=== PATIENT | female | born 1985 | race Caucasian/White ===

== ENCOUNTER 2017-07-01 21:10 | Emergency (ER) | payer OTHER ==
[~2017-07-01 21:10] MED LIST: ALBU17I INH; HYCOS PO; Z.0.NO CURRENT MEDS; ZITH250T PO
[2017-07-01 21:12] VITALS: BP 220/108; PULSE 75; RESP 20; TEMP 97.9; O2SAT 99
[2017-07-01] MEDS ORDERED: DEXAMETHASONE SOD PHOS 4 MG/ML VIAL IV PUSH ONE (21:30)
[2017-07-01] MEDS ORDERED: SODIUM CHLORIDE 0.9% FLUSH 10 ML FLUSH IVF PRN (21:30)
--- NOTE | 2017-07-01 21:37 | PD ---
HPI Chief Complaint: Oral / Dental Pain or Problem Time Seen by Provider: 21:29 Travel History International Travel<30 days: No Contact w/Intl Traveler<30days: No Traveled to known affect area: No History of Present Illness HPI 32 YO F presents to the ED for evaluation of facial pain and swelling for two days. Patient states the swelling of the left side, related to "bad teeth." She states that she was seen by the dentist and provided a prescription of clindamycin. She finished this prescription 5 days ago. She did get improvement of her pain and swelling while she was taking the medication. She denies fevers or chills, nausea or vomiting, dizziness, headaches, difficulty opening and closing the mouth, difficulties breathing. She states she has an appointment with the oral surgeon in a few days to have 5 teeth removed. PFS Past Medical History Medical History: Denies Significant Hx Immunizations Current: Yes ?: Not : 2 Para: 0 Miscarriage: 2 Past Surgical History Cholecystectomy: Yes Social History Alcohol Use: Yes (OCCASIONALLY) Tobacco Use: No Substance Use: No Allergies-Medications (Allergen,Severity, Reaction): Coded Allergies: latex (Unverified Allergy, Mild, 07/01/17) iodine (Verified Allergy, Unknown, 07/01/17) Reported Meds & Prescriptions Reported Meds & Active Scripts Active No Active Prescriptions or Reported Medications Review of Systems Except as stated in HPI: all other systems reviewed are Neg Physical Exam Narrative GENERAL: Well-nourished, well-developed morbidly obese white female in no acute distress. SKIN: Warm and dry. HEAD: Normocephalic. Atraumatic. Edema of the left lateral mandible. EYES: No scleral icterus. No injection or drainage. PERRLA. EOMI. ENT: Pearly yepez tympanic membranes bilaterally. Nasal mucosa is moist. Oropharynx without erythema, edema or exudate. Airway patent. Floor of the mouth is soft. Exam somewhat limited, Mallampati class 3. DENTAL: Poor dentition overall. Several missing an chipped teeth. Tooth #19 is broken to the gumline. There is localized tenderness and edema. No visible/ palpable abscess. NECK: Supple, trachea midline. No JVD or lymphadenopathy. CARDIOVASCULAR: Regular rate and rhythm without murmurs, gallops, or rubs. RESPIRATORY: Breath sounds clear and equal bilaterally. No accessory muscle use. GASTROINTESTINAL: Abdomen soft, non-tender, nondistended. MUSCULOSKELETAL: No cyanosis, or edema. BACK: Nontender without obvious deformity. No CVA tenderness. Data Data Last Documented VS Vital Signs Date Time Temp Pulse Resp B/P (MAP) Pulse Ox O2 Delivery O2 Flow Rate FiO2 07/01/17 21:12 97.9 75 20 220/108 (145) 99 Room Air Orders Orders Basic Metabolic Panel (Bmp) (07/01/17 21:29) Complete Blood Count With Diff (07/01/17 21:29) Iv Access Insert/Monitor (07/01/17 21:29) Dexamethasone Inj (Decadron Inj) (07/01/17 21:30) Sodium Chloride 0.9% Flush (Ns Flush) (07/01/17 21:30) Ed Urine Pregnancytest Poc (07/01/17 21:29) Ct Soft Tiss Neck W/O Iv Cont (07/01/17 ) Labs Laboratory Tests Test 07/01/17 21:37 White Blood Count 11.7 TH/MM3 Red Blood Count 4.83 MIL/MM3 Hemoglobin 14.3 GM/DL Hematocrit 41.6 % Mean Corpuscular Volume 86.1 FL Mean Corpuscular Hemoglobin 29.6 PG Mean Corpuscular Hemoglobin Concent 34.4 % Red Cell Distribution Width 12.9 % Platelet Count 263 TH/MM3 Mean Platelet Volume 7.5 FL Neutrophils (%) (Auto) 61.9 % Lymphocytes (%) (Auto) 24.9 % Monocytes (%) (Auto) 5.7 % Eosinophils (%) (Auto) 6.3 % Basophils (%) (Auto) 1.2 % Neutrophils # (Auto) 7.2 TH/MM3 Lymphocytes # (Auto) 2.9 TH/MM3 Monocytes # (Auto) 0.7 TH/MM3 Eosinophils # (Auto) 0.7 TH/MM3 Basophils # (Auto) 0.1 TH/MM3 CBC Comment DIFF FINAL Differential Comment Blood Urea Nitrogen 8 MG/DL Creatinine 0.76 MG/DL Random Glucose 274 MG/DL Calcium Level 8.7 MG/DL Sodium Level 137 MEQ/L Potassium Level 4.0 MEQ/L Chloride Level 102 MEQ/L Carbon Dioxide Level 27.9 MEQ/L Anion Gap 7 MEQ/L Estimat Glomerular Filtration Rate 87 ML/MIN MDM Medical Decision Making Medical Screen Exam Complete: Yes Emergency Medical Condition: Yes Differential Diagnosis Dental abscess versus dental caries versus deep space infection of the neck versus cellulitis versus other Narrative Course 32 YO F presents to the ED for evaluation of facial pain and swelling for two days. Patient states the swelling of the left side, related to "bad teeth." She finished a prescription of clindamycin from the dentist 5 days ago. She did get improvement of her pain and swelling while she was taking the medication. She denies fevers or chills, nausea or vomiting, dizziness, headaches, difficulty opening and closing the mouth, difficulties breathing. She states she has an appointment with the oral surgeon in a few days to have 5 teeth removed. Vitals reviewed. Patient's hypertensive on presentation. His ankle exam reveals a morbidly obese white female in no acute distress. She does have visible swelling of the left lower mandible. There is induration in the area and tender, broken teeth in the oral cavity. Airway is patent. Uvula is midline. No evidence of drainable abscess. Exam somewhat limited, Mallampati class III. IV was established. Patient was administered 10 mg Decadron IV. No concerning abnormalities in CBC, CMP. CT soft tissue of the neck ordered and pending. The patient's allergic to iodine, study is without contrast. Patient is signed out to Dr. Ernst at end of shift. Please see her note for disposition. Scripts No Active Prescriptions or Reported Meds Olimpia Beltrán Jul 01, 2017 21:37
[2017-07-01 21:49] LABS: AUTOMATED NEUTROPHIL # 7.2 TH/MM3 (1.8-7.7); BASOPHIL # 0.1 TH/MM3 (0-0.2); BASOPHIL % 1.2 % (0.0-2.0); EOSINOPHIL # 0.7 TH/MM3 (0-0.4); EOSINOPHIL % 6.3 % (0.0-4.0); HEMATOCRIT 41.6 % (35.0-46.0); HEMO FLAGS DIFF FINAL; LYMPH % 24.9 % (9.0-44.0); LYMPHOCYTE # 2.9 TH/MM3 (1.0-4.8); MEAN CELL VOLUME 86.1 FL (80.0-100.0); MEAN CORPUSCULAR HEMOGLOBIN 29.6 PG (27.0-34.0); MEAN CORPUSCULAR HGB CONC 34.4 % (32.0-36.0); MONO % 5.7 % (0.0-8.0); NEUT % 61.9 % (16.0-70.0); PLATELET COUNT 263 TH/MM3 (150-450); RED BLOOD COUNT 4.83 MIL/MM3 (4.00-5.30); RED CELL DISTRIBUTION WIDTH 12.9 % (11.6-17.2); WHITE BLOOD COUNT 11.7 TH/MM3 (4.0-11.0)
[2017-07-01 22:03] LABS: BICARBONATE 27.9 MEQ/L (21.0-32.0)
[2017-07-01 23:12] VITALS: BP 167/100
--- NOTE | 2017-07-01 23:13 | PD ---
Physical Exam Date Seen by Provider: Jul 01, 2017 Time Seen by Provider: 23:13 Narrative Accepted in transfer of care Data Data Last Documented VS Vital Signs Date Time Temp Pulse Resp B/P (MAP) Pulse Ox O2 Delivery O2 Flow Rate FiO2 07/01/17 23:12 167/100 (122) 07/01/17 21:12 97.9 75 20 99 Room Air Orders Orders Basic Metabolic Panel (Bmp) (07/01/17 21:29) Complete Blood Count With Diff (07/01/17 21:29) Iv Access Insert/Monitor (07/01/17 21:29) Dexamethasone Inj (Decadron Inj) (07/01/17 21:30) Sodium Chloride 0.9% Flush (Ns Flush) (07/01/17 21:30) Ed Urine Pregnancytest Poc (07/01/17 21:29) Ct Soft Tiss Neck W/O Iv Cont (07/01/17 ) Blood Culture (07/01/17 23:12) Clindamycin 900 Mg/Ns Premix (Cleocin 90 (07/01/17 23:15) Ed Discharge Order (07/02/17 00:43) Labs Laboratory Tests Test 07/01/17 21:37 White Blood Count 11.7 TH/MM3 Red Blood Count 4.83 MIL/MM3 Hemoglobin 14.3 GM/DL Hematocrit 41.6 % Mean Corpuscular Volume 86.1 FL Mean Corpuscular Hemoglobin 29.6 PG Mean Corpuscular Hemoglobin Concent 34.4 % Red Cell Distribution Width 12.9 % Platelet Count 263 TH/MM3 Mean Platelet Volume 7.5 FL Neutrophils (%) (Auto) 61.9 % Lymphocytes (%) (Auto) 24.9 % Monocytes (%) (Auto) 5.7 % Eosinophils (%) (Auto) 6.3 % Basophils (%) (Auto) 1.2 % Neutrophils # (Auto) 7.2 TH/MM3 Lymphocytes # (Auto) 2.9 TH/MM3 Monocytes # (Auto) 0.7 TH/MM3 Eosinophils # (Auto) 0.7 TH/MM3 Basophils # (Auto) 0.1 TH/MM3 CBC Comment DIFF FINAL Differential Comment Blood Urea Nitrogen 8 MG/DL Creatinine 0.76 MG/DL Random Glucose 274 MG/DL Calcium Level 8.7 MG/DL Sodium Level 137 MEQ/L Potassium Level 4.0 MEQ/L Chloride Level 102 MEQ/L Carbon Dioxide Level 27.9 MEQ/L Anion Gap 7 MEQ/L Estimat Glomerular Filtration Rate 87 ML/MIN [facility] Medical Record Reviewed: Yes Supervised Visit with ESDRAS: Yes Interpretation(s) Last Impressions Neck CT 07/01/17 0000 Signed Impressions: Service Date/Time: Saturday, July 01, 2017 23:00 - CONCLUSION: Inflammatory changes are seen in the left neck and perimandibular region with dental caries identified however a well-defined fluid collection to suggest abscess is not clearly seen at this time. Bilateral maxillary acute on chronic sinusitis. Nacho Nation MD Differential Diagnosis Facial abscess cellulitis dental abscess Narrative Course Specimen collected and sent for resulting CT facial/soft tissue neck ordered without contrast due to contrast allergy to evaluate for abscess Patient resting comfortably will administer a one-time dose of IV clindamycin the patient will resume oral antibiotic as an outpatient if no evidence of abscess identified on imaging Patient resting well CT identifies soft tissue induration but no abscess; patient given IV dose of clindamycin and stable for outpatient management Diagnosis Primary Impression: Facial cellulitis Additional Impression: Dental abscess Referrals: Dentist 2 days Patient Instructions: General Instructions Med/Other Pt SpecificInfo: Prescription(s) given Scripts Ibuprofen (Ibuprofen) 800 Mg Tab 800 MG PO Q8H Y for PAIN GREATER THAN 5, #12 TAB 0 Refills Prov: Tatiana Ernst MD 07/02/17 Clindamycin (Clindamycin) 150 Mg Cap 300 MG PO Q6H for Infection for 7 Days, #56 CAP 0 Refills Prov: Tatiana Ernst MD 07/02/17 Disposition: 01 DISCHARGE HOME Condition: Stable Tatiana Ernst MD Jul 01, 2017 23:13
[2017-07-01] MEDS: CLINDAMYCIN 900 MG/NS PREMIX 50 ML IV ONE (23:15)
--- NOTE | 2017-07-01 23:17 | RADRPT ---
EXAM DATE/TIME: 07/01/2017 23:00 [place] COMPARISON: No previous studies available for comparison. INDICATIONS : Left jaw swelling; possible dental abscess. RADIATION DOSE: 32.59 CTDIvol (mGy) MEDICAL HISTORY : None SURGICAL HISTORY : Cholecystectomy. ENCOUNTER: Initial ACUITY: 1 day PAIN SCORE: 5/10 LOCATION: facial TECHNIQUE: Volumetric scanning of the neck was performed. Using automated exposure control and adjustment of th e mA and/or kV according to patient size, radiation dose was kept as low as reasonably achievable to obtain optimal diagnostic quality images. DICOM format image data is available electronically for re view and comparison. FINDINGS: Lung apices are clear. There is chronic periosteal thickening in the maxillary sinuses bilaterally wi th circumferential mucosal thickening and bilateral air-fluid levels characteristic of sinusitis. The re are no fractures. Ethmoid, sphenoid sinuses and mastoid air cells are well aerated. Dental caries are noted involving the mandibular molars bilaterally, and there is significant stranding of the subc utaneous fat of the left submandibular and perimandibular region without demonstrable fluid collectio n at this time. There is thickening of the platysma and mild skin thickening characteristic of cellul itis. There reactive mildly prominent lymph nodes in the neck. The submandibular and parotid glands a re normal. Nasopharynx, oropharynx, hypopharynx and larynx are normal. There is a calcified nodule of the left thyroid lobe measuring 7 mm. CONCLUSION: Inflammatory changes are seen in the left neck and perimandibular region with dental caries identifie d however a well-defined fluid collection to suggest abscess is not clearly seen at this time. Bilate ral maxillary acute on chronic sinusitis. Nacho Nation MD on July 01, 2017 at 23:13 Board Certified Radiologist. This report was verified electronically.
[2017-07-02] MEDS ORDERED: CLIN150C14 PO (00:45)
[2017-07-02] MEDS ORDERED: IBUP1TAB7 PO (00:59)
[2017-07-02] MEDS: CLINDAMYCIN 900 MG/NS PREMIX 50 ML IV ONE (01:00)
== END 2017-07-02 01:40 | disposition home or self-care (01) ==
LOC: NEPC 21:10
DX: L03.211 Cellulitis of face (principal); K04.7 Periapical abscess without sinus; B95.7 Other staphylococcus as the cause of diseases classified elsewhere
CPT/HCPCS: 70490; 80048; 84703; 85025; 86403; 87040; 87077; 87186; 87205; 96374; 96375; 99285; J1100